=== PATIENT | male | born 1950 | race Caucasian/White ===

== ENCOUNTER → 2017-12-28 | Outpatient (CLI) | payer OTHER, MEDICARE | LOC: CIMAGING 10:45 | PROVIDERS: ATTEND Family Medicine | DX: I62.00 Nontraumatic subdural hemorrhage, unspecified (principal); R20.2 Paresthesia of skin | CPT/HCPCS: 70450-PO ==

== ENCOUNTER → 2018-02-28 | Outpatient (CLI) | payer OTHER, MEDICARE | LOC: CIMAGING 13:59 | PROVIDERS: ATTEND Neurological Surgery | DX: S06.5X0A Traumatic subdural hemorrhage without loss of consciousness, initial encounter (principal); J34.1 Cyst and mucocele of nose and nasal sinus | CPT/HCPCS: 70450-PO ==